=== PATIENT | female | born 1980 | race Caucasian/White ===

== ENCOUNTER 2018-09-11 06:58 | Day surgery (SDC) | payer OTHER ==
[~2018-09-11] VITALS: Ht 167.6 cm; Wt 83.5 kg
[~2018-09-11 06:58] MED LIST: CETI5 PO; PSYSENPA PO; SUMA25 PO
--- NOTE | 2018-09-11 08:27 | NUR ---
Ambulatory in Day Surgery History, Chart, Medications and Allergies reviewed before start of procedure.Patient confirms NPO status and agrees with scheduled surgery. Patient reports completing Chlorhexadine shower X2 prior to admission to hospital.Surgical site prepped with 2% Chlorhexidine cloth wipe.
--- NOTE | 2018-09-11 08:40 | NUR ---
[employer] HEL[employer] REPORT COMPLETED AT BEDSIDE WITH Gwyn BARRIOS RN
--- NOTE | 2018-09-11 11:25 | NUR ---
PT STATES COMFORTABLE AT THIS TIME WITH A 3/10 PAIN. X4 BANDAIDS ON ABD CDI.
--- NOTE | 2018-09-11 11:59 | NUR ---
PT TAKING NORCO 5/325 AND EATING PUDDING WITH SPRITE.
--- NOTE | 2018-09-11 12:16 | NUR ---
RX GIVEN TO PT . Discharge instructions reviewed with patient. Patient verbalizes understanding. Copy given to patient to take home. NO QUESTIONS OR CONCERNS VOICED. PT TOLERATED SNACK AND PAIN PILL. PT HAS ALL PERSONAL BELONGINGS. PT GETTING DRESSED. ABD BANDAIDS CDI. Patient States Post-Procedure ride home has been arranged. Discharged via wheelchair to private car for ride home.
== END 2018-09-11 12:24 | disposition home or self-care (01) ==
LOC: ORSCMMR 06:58 → ORD 08:30 → ORSCMMR 12:24
PROVIDERS: Surgery
PROC: 0FT44ZZ Resection of Gallbladder, Percutaneous Endoscopic Approach (ICD-10-PCS; principal; 2018-09-11 08:30)
PROC: BF031ZZ Plain Radiography of Gallbladder and Bile Ducts using Low Osmolar Contrast (ICD-10-PCS; principal; 2018-09-11 08:30)
DX: K80.10 Calculus of gallbladder with chronic cholecystitis without obstruction (principal)
CPT/HCPCS: 74300; 88304; C1894; J0694; J1100; J1885; J2250; J2405; J2710; J3010; J7030; J7120

== ENCOUNTER → 2019-01-06 | Outpatient (CLI) | payer OTHER | END | disposition home or self-care (01) | LOC: LAB SHORT 16:40 → LAB 16:40 | DX: Z13.1 Encounter for screening for diabetes mellitus (principal); Z13.220 Encounter for screening for lipoid disorders; R19.7 Diarrhea, unspecified; R10.9 Unspecified abdominal pain | CPT/HCPCS: 87338 ==

== ENCOUNTER 2019-03-26 11:42 | Day surgery (SDC) | payer OTHER ==
[~2019-03-26] VITALS: Ht 165.1 cm; Wt 78.9 kg
[~2019-03-26 11:42] MED LIST changes: +OMEP20ER PO; +Questran4 GM PO; +ZYRTEC10 M1 PO
== END 2019-03-26 15:22 | disposition home or self-care (01) ==
LOC: ORSCSDS 11:42
PROVIDERS: Student in an Organized Health Care Education/Training Program
PROC: 0DB68ZX Excision of Stomach, Via Natural or Artificial Opening Endoscopic, Diagnostic (ICD-10-PCS; principal; 2019-03-26 13:00)
PROC: 0DB98ZX Excision of Duodenum, Via Natural or Artificial Opening Endoscopic, Diagnostic (ICD-10-PCS; principal; 2019-03-26 13:00)
DX: R11.2 Nausea with vomiting, unspecified (principal); K29.70 Gastritis, unspecified, without bleeding; K21.9 Gastro-esophageal reflux disease without esophagitis; F41.9 Anxiety disorder, unspecified
CPT/HCPCS: 88305; 88342; J2250; J2704; J7120

== ENCOUNTER → 2022-11-07 | Outpatient (CLI) | payer OTHER, BC ==
[2022-11-07 14:44] LABS: BASOPHILS ABSOLUTE AUTO 0.04 K/mm3 (0.00-0.23); BASOPHILS PERCENT AUTO 0 % (0-2); EOSINOPHILS ABSOLUTE AUTO 0.14 K/mm3 (0.00-0.68); EOSINOPHILS PERCENT AUTO 1 % (0-6); Hematocrit 41.3 % (33.0-51.0); Hemoglobin 14.2 g/dL (11.5-16.0); IMMATURE GRAN ABSOLUTE AUTO 0.07 K/mm3 (0.00-0.10); IMMATURE GRAN PERCENT AUTO 1 % (0-1); LYMPHOCYTES ABSOLUTE AUTO 2.67 K/mm3 (0.84-5.20); LYMPHOCYTES PERCENT AUTO 22 % (21-46); MONOCYTES ABSOLUTE AUTO 0.87 K/mm3 (0.16-1.47); MONOCYTES PERCENT AUTO 7 % (4-13); Mean Corpuscular HGB 32.5 pg (26.0-34.0); Mean Corpuscular HGB Conc 34.4 g/dL (31.5-36.5); Mean Corpuscular Volume 95 fL (80-100); Mean Platelet Volume 8.9 fL (9.1-12.4); NEUTROPHILS ABSOLUTE AUTO 8.14 K/mm3 (1.96-9.15); NEUTROPHILS PERCENT AUTO 68 % (41-73); Platelet Count 297 K/mm3 (150-400); RDW Standard Deviation 42.1 fL (35.1-46.3); Red Blood Cell Count 4.37 M/mm3 (3.80-5.20); White Blood Cell Count 11.93 K/mm3 (4.00-11.30)
[2022-11-07 15:31] LABS: Albumin, Blood 3.9 g/dL (3.4-5.0); Albumin/Globulin Ratio 1.2 (0.8-1.8); Bilirubin, Direct 0.2 mg/dL (0.0-0.3); Bilirubin, Indirect 0.6 mg/dL (0.1-0.7); Bilirubin, Total 0.8 mg/dL (0.1-1.0); Bun/Creatinine Ratio 15.4 (12.0-20.0); Calcium, Blood 8.8 mg/dL (8.5-10.1); Creatinine, Blood 0.71 mg/dL (0.40-1.00); Globulin, Blood 3.2 g/dL (2.2-4.0); Magnesium, Blood 2.2 mg/dL (1.6-2.4); Potassium, Blood 3.6 mmol/L (3.5-5.5); Total Protein, Blood 7.1 g/dL (6.4-8.2)
== END | disposition home or self-care (01) ==
LOC: LAB 13:30 → LAB SHORT 13:30
PROVIDERS: Internal Medicine
DX: R10.9 Unspecified abdominal pain (principal); R19.7 Diarrhea, unspecified; E55.9 Vitamin D deficiency, unspecified; Z79.899 Other long term (current) drug therapy
CPT/HCPCS: 80053; 82248; 82306; 82607; 83735; 85025

== ENCOUNTER → 2023-03-04 | Outpatient (CLI) | payer OTHER, BC ==
[2023-03-05 16:07] LABS: HPV 16 Negative (Negative); HPV 18 Negative (Negative); HPV OTHER HR TYPES Negative (Negative)
== END ==
LOC: LAB SHORT 16:57 → LAB 16:57
PROVIDERS: Obstetrics & Gynecology
DX: Z01.419 Encounter for gynecological examination (general) (routine) without abnormal findings (principal)
CPT/HCPCS: 87624; G0145

== ENCOUNTER → 2023-09-11 | Outpatient (CLI) | payer OTHER, BC | END | disposition home or self-care (01) | LOC: LAB SHORT 12:30 → LAB 12:30 | DX: E53.8 Deficiency of other specified B group vitamins (principal) | CPT/HCPCS: 82607 ==

== ENCOUNTER 2024-07-10 05:18 | Day surgery (SDC) | payer OTHER, BC ==
[2024-07-10] MEDS ORDERED: Cosyntropin 0.25 MG / ML 1ML Vial IM SCH (06:50)
[2024-07-10 09:34] VITALS: BP 134/83
== END 2024-07-10 10:38 | disposition home or self-care (01) ==
LOC: ATC 05:18
DX: E27.1 Primary adrenocortical insufficiency (principal); R79.89 Other specified abnormal findings of blood chemistry; G43.909 Migraine, unspecified, not intractable, without status migrainosus
CPT/HCPCS: 36415; 80400; 82533; 96372; J0834